=== PATIENT | male | born 1980 | race Caucasian/White ===

== ENCOUNTER 2025-01-13 11:11 | Emergency (ER) | payer BC, SELFPAY ==
--- OUTSIDE RECORDS SUMMARY | 2024-12-19 10:00 | XMS_ITS | Encounter Summary ---
Author Organization [facility] Address [address] [place] [address] Care Team Providers Care Door Clamp Operator Name Role Phone DrewKimberly CASTINGS TRIMMER Unavailable No Ref-Primary, Physician Primary Care Provider Encounter Details Date Type Department Care Team (Late Contact Info) Description 12/19/2024 10:00 AM CDT Virtual Visit [address] [phone] Deepak Soto, CASTINGS TRIMMER Dysphonia (Primary Dx); Vocal cord bowing Social History Tobacco Use Types Packs/Day Years Used Date Smoking Tobacco: Never Assessed PHQ-2 Answer Date Recorded PHQ-2 Score 1 09/03/2024 Sex and Gender Information Value Date Recorded Sex Assigned at Not on file 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 Gender Identity Not on file Sexual Orientation Not on file documented as of this encounter Plan of Treatment Upcoming Encounters Date Type Department Care Team ([facility] Contact Info) Description 01/23/2025 11:00 AM CDT Virtual Visit [address] [phone] Deepak Soto, DEBBIE 02/04/2025 11:30 AM CDT Office Visit [address] [phone] Deepak Soto, CASTINGS TRIMMER documented as of this encounter Visit Diagnoses Diagnosis Dysphonia- Primary Vocal cord bowing Other diseases of vocal cords documented in this encounter Care Teams Door Clamp Operator Relationship Specialty Start Date End Date No Ref-Primary, Physician PCP - General 07/15/24 Kimbelry Russell, DEBBIE [address] [place] [id number] Speech Language Pathologist Speech Language/Path 10/09/23 documented as of this encounter
--- OUTSIDE RECORDS SUMMARY | 2024-12-26 15:00 | XMS_ITS | Encounter Summary ---
Author Organization [facility] Address [address] [place] [address] Care Team Providers Care Engineering Design Supervisor Name Role Phone DrewKimberly TRUCK MANAGER Unavailable No Ref-Primary, Physician Primary Care Provider Encounter Details Date Type Department Care Team (Late Contact Info) Description 12/26/2024 3:00 PM CDT Office Visit [address] [phone] Deepak Soto, TRUCK MANAGER Dysphonia (Primary Dx); Vocal cord bowing Social History Tobacco Use Types Packs/Day Years Used Date Smoking Tobacco: Never Assessed PHQ-2 Answer Date Recorded PHQ-2 Score 1 09/03/2024 Sex and Gender Information Value Date Recorded Sex Assigned at Not on file 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 Gender Identity Not on file Sexual Orientation Not on file documented as of this encounter Plan of Treatment Upcoming Encounters Date Type Department Care Team ([facility] Contact Info) Description 01/23/2025 11:00 AM CDT Virtual Visit [address] [phone] Deepak Soto, DEBBIE 02/04/2025 11:30 AM CDT Office Visit [address] [phone] Deepak Soto, TRUCK MANAGER documented as of this encounter Visit Diagnoses Diagnosis Dysphonia- Primary Vocal cord bowing Other diseases of vocal cords documented in this encounter Care Teams Engineering Design Supervisor Relationship Specialty Start Date End Date No Ref-Primary, Physician PCP - General 07/15/24 Kimberly Russell, DEBBIE [address] [place] [id number] Speech Language Pathologist Speech Language/Path 10/09/23 documented as of this encounter
--- OUTSIDE RECORDS SUMMARY | 2025-01-09 16:00 | XMS_ITS | Encounter Summary ---
Author Organization [facility] Address [address] [place] [address] Care Team Providers Care Coat Hanger Shaper Machine Operator Name Role Phone DrewKimberly COTTON BALER Unavailable No Ref-Primary, Physician Primary Care Provider Encounter Details Date Type Department Care Team (Late Contact Info) Description 01/09/2025 4:00 PM CDT Virtual Visit [address] [phone] Deepak Soto, COTTON BALER Dysphonia (Primary Dx); Vocal cord bowing Social History Tobacco Use Types Packs/Day Years Used Date Smoking Tobacco: Never Assessed PHQ-2 Answer Date Recorded PHQ-2 Score 1 09/03/2024 Sex and Gender Information Value Date Recorded Sex Assigned at Not on file 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 Gender Identity Not on file Sexual Orientation Not on file documented as of this encounter Plan of Treatment Upcoming Encounters Date Type Department Care Team ([facility] Contact Info) Description 01/23/2025 11:00 AM CDT Virtual Visit [address] [phone] Deepak Soto, DEBBIE 02/04/2025 11:30 AM CDT Office Visit [address] [phone] Deepak Soto, COTTON BALER documented as of this encounter Visit Diagnoses Diagnosis Dysphonia- Primary Vocal cord bowing Other diseases of vocal cords documented in this encounter Care Teams Coat Hanger Shaper Machine Operator Relationship Specialty Start Date End Date No Ref-Primary, Physician PCP - General 07/15/24 Kimberly Russell, DEBBIE [address] [place] [address] Speech Language Pathologist Speech Language/Path 10/09/23 documented as of this encounter
--- OUTSIDE RECORDS SUMMARY | 2025-01-13 11:13 | XMS_ITS | Clinical Summary ---
Author Organization [facility] Address [facility] [place] [address] Care Team Providers Care Bioprocessing Manufacturing Technician Name Role Phone [facility] Primary Care Provider [phone] Allergies No known active allergies Medications albuterol HFA (PRO-AIR; VENTOLIN; PROVENTIL) 90 mcg/actuation inhaler INHALE 2 PUFFS BY MOUTH EVERY 4 HOURS NEEDED FOR WHEEZING OR SHORTNESS OF BREATH 4 Active benzonatate (TESSALON) 200 mg capsule Take 200 mg by mouth 3 times daily if needed. FOR COUGH 4 Active buPROPion (WELLBUTRIN XL) 300 mg Extended-Releas e tablet Take 300 mg by mouth once daily. 4 Active hydrOXYzine HCL (ATARAX) 25 mg tablet Take by mouth at bedtime. 4 Active ipratropium (ATROVENT NASAL) 21 mcg (0.03 %) nasal spray USE 2 SPRAYS IN EACH NOSTRIL TWICE DAILY 4 Active Social History Tobacco Use Types Packs/Day Years Used Date Smoking Tobacco: Never Passive Smoke Exposure: Never Smokeless Tobacco: Never Tobacco Cessation:Counseling Given: Not Answered Sex and Gender Information Value Date Recorded Sex Assigned at Not on file Legal Sex Male 3:10 PM CDT Gender Identity Not on file Sexual Orientation Not on file Obstetrics History Last Filed Vital Signs Vital Sign Reading Time Taken Comments Blood Pressure 128/72 05/04/2024 3:35 PM CDT Pulse 97 05/04/2024 3:35 PM CDT Temperature 36.7 C (98 F) 05/04/2024 3:35 PM CDT Respiratory Rate 18 05/04/2024 3:35 PM CDT Oxygen Saturation 96% 05/04/2024 3:35 PM CDT Inhaled Oxygen Concentration - - Weight 72.1 kg (159 lb) 05/04/2024 3:35 PM CDT Height - - Body Mass Index - - Plan of Treatment Health Maintenance Due Date Last Done Comments Tdap 1993 Depression screening for age 12+ 1994 HIV for age 15-65 1997 BMI (ht and wt on same day) for age 18+ 2000 Hepatitis C screening for age 18-79 2000 Hepatitis B series for 19+ (1 of 3 - 19+ 3-dose series) 2001 Tetanus booster 2002 Lipids for age 35-44 2017 COVID-19 vaccine series (2023- season) 2024 05/21/2023, 07/16/2022, 07/13/2021, Additional history exists Influenza Vaccine (Season Ended) 2025 Pneumococcal series for age 6-49 Aged Out No longer eligible based on patient's age to complete this [place] [address] [place] [address] Care Teams Bioprocessing Manufacturing Technician Relationship Specialty Start Date End Date [facility] [address] [place] [address] PCP - General 05/04/24
--- OUTSIDE RECORDS SUMMARY | 2025-01-13 11:13 | XMS_ITS | Clinical Summary ---
Author Organization [facility] Address [address] [place] [address] Care Team Providers Care Peoplesoft Financials Consultant Name Role Phone DrewKimberly SYSTEMS SOFTWARE SPECIALIST Unavailable No Ref-Primary, Physician Primary Care Provider Encounters Date Type Department Care Team Description 01/09/2025 4:00 PM CDT Virtual Visit [address] [phone] Deepak Soto SYSTEMS SOFTWARE SPECIALIST Dysphonia (Primary Dx); Vocal cord bowing 12/26/2024 3:00 PM CDT Office Visit [address] [phone] Deepak Soto, SYSTEMS SOFTWARE SPECIALIST Dysphonia (Primary Dx); Vocal cord bowing 12/26/2024 Travel 12/19/2024 10:00 AM CDT Virtual Visit [address] [phone] Deepak Soto, SYSTEMS SOFTWARE SPECIALIST Dysphonia (Primary Dx); Vocal cord bowing 11/27/2024 4:00 PM CDT Office Visit [address] [phone] Deepak Soto, SYSTEMS SOFTWARE SPECIALIST Dysphonia (Primary Dx); Vocal cord bowing 11/27/2024 Travel 11/26/2024 3:00 PM CDT Virtual Visit [facility] [address] [phone] Deepak Soto SLP Dysphonia (Primary Dx); Vocal cord bowing 10/29/2024 3:00 PM CDT Virtual Visit [address] [phone] Deepak Soto SLP Dysphonia (Primary Dx); Vocal cord bowing from Last 3 Months Social History Tobacco Use Types Packs/Day Years Used Date Smoking Tobacco: Never Assessed PHQ-2 Answer Date Recorded PHQ-2 Score 1 09/03/2024 Sex and Gender Information Value Date Recorded Sex Assigned at Not on file 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 Gender Identity Not on file Sexual Orientation Not on file Plan of Treatment Upcoming Encounters Date Type Department Care Team (Late st Contact Info) Description 01/23/2025 11:00 AM CDT Virtual Visit [address] [phone] Deepak Soto SLP 02/04/2025 11:30 AM CDT Office Visit [address] [phone] Deepak Soto SLP Health Maintenance Due Date Last Done Comments ADVANCE CARE PLANNING 1982 ANNUAL REVIEW OF HM ORDERS 1982 DIABETES SCREENING 1982 YEARLY PREVENTIVE VISIT 1985 HIV SCREENING 1997 HEPATITIS C SCREENING 2000 HEPATITIS B VACCINE (1 of 3 - 19+ 3-dose series) 2001 LIPID 2022 ZOSTER VACCINE (1 of 2) 2032 DTAP/TDAP/TD VACCINE (2 - Td or Tdap) 03/03/2033 03/03/2023 COVID-19 VACCINE Completed 05/13/2024, 04/2023, 07/16/2022, Additional history exists INFLUENZA VACCINE Completed 05/13/2024, , 07/16/2022, Additional history exists PHQ-2 (once per calendar year) Completed 09/03/2024 HPV VACCINE Aged Out No longer eligi ble based on patient's age to complete this topic MENINGITIS VACCINE Aged Out No longer eligible based on patient's age to complete this topic PNEUMOCOCCAL VACCINE: PEDIATRICS (0 to 5 YEARS) AND AT-RISK PATIENTS (6 to 49 YEARS) Aged Out No longer eligible based on patient's age to complete this topic Procedures Procedure Name Priority Date/Time Associated Diagnosis Comments OR SPEECH/HEARING THERAPY, INDIVIDUAL Routine 12/25/2024 10:16 PM CDT Dysphonia Vocal cord bowing OR SPEECH/HEARING THERAPY, INDIVIDUAL Routine 12/04/2024 9:52 AM CDT Dysphonia Vocal cord bowing OR SPEECH/HEARING THERAPY, INDIVIDUAL Routine 11/02/2024 2:25 PM CDT Dysphonia Vocal cord bowing from Last 3 Months Insurance [facility] Care Teams Pe[employer] Financ[employer] Consultant Relationship Specialty Start Date End Date No Ref-Primary, Physician PCP - General 07/15/24 Kimberly Russell SLP [address] [place] [address] Speech Language Pathologist Speech Language/Path 10/09/23
--- OUTSIDE RECORDS SUMMARY | 2025-01-13 11:13 | XMS_ITS | Encounter Summary ---
Author Organization [facility] Address [address] [place] [address] Care Team Providers Care Counter Hand Name Role Phone Kimberly Russell STOREROOM CLERK Unavailable No Ref-Primary, Physician Primary Care Provider Encounter Details Date Type Department Care Team (Late Contact Info) Description 07/15/2024 MyC Medical Advice [address] [phone] Kimberly Russell, STOREROOM CLERK [address] [place] [phone] Social History Tobacco Use Types Packs/Day Years Used Date Smoking Tobacco: Never Assessed Sex and Gender Information Value Date Recorded Sex Assigned at Not on file 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 Gender Identity Not on file Sexual Orientation Not on file documented as of this encounter Plan of Treatment Upcoming Encounters Date Type Department Care Team ([facility] Contact Info) Description 01/23/2025 11:00 AM CDT Virtual Visit [address] [phone] Deepak Soto, STOREROOM CLERK 02/04/2025 11:30 AM CDT Office Visit [address] [phone] Deepak Soto, STOREROOM CLERK documented as of this encounter Visit Diagnoses Not on filedocumented in this encounter Care Teams Counter Hand Relationship Specialty Start Date End Date No Ref-Primary, Physician PCP - General 07/15/24 Kimberly Russell, DEBBIE [address] [place] [address] Speech Language Pathologist Speech Language/Path 10/09/23 documented as of this encounter
--- OUTSIDE RECORDS SUMMARY | 2025-01-13 11:13 | XMS_ITS | Encounter Summary ---
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 Gender Identity Not on file Sexual Orientation Not on file documented as of this encounter Plan of Treatment Upcoming Encounters Date Type Department Care Team (Late st Contact Info) Description 01/23/2025 11:00 AM CDT Virtual Visit [address] [phone] Deepak Soto SLP 02/04/2025 11:30 AM CDT Office Visit [address] [phone] Deepak Soto SLP documented as of this encounter Visit Diagnoses Not on filedocumented in this encounter Care Teams Insole Taper Relationship Specialty Start Date End Date No Ref-Primary, Physician PCP - General 07/15/24 Kimberly Russell SLP [address] [place] [phone] Speech Language Pathologist Speech Language/Path 10/09/23 documented as of this encounter
[2025-01-13 11:15] VITALS: BP 133/82; PULSE 72; RESP 16; TEMP 36.1; O2SAT 98; BMI 20.7
--- NOTE | 2025-01-13 11:26 | ED_ITS ---
HPI - General Adult General Chief complaint: Flank Pain Stated complaint: L side pain Time Seen by Provider: 01/13/25 11:26 History of Present Illness HPI narrative: L back and flank pain since sunday. thought it might be constipation ate prunes, had bm. pain got better. pain suddenly returned at 0800 this am and had to leave work by 0820. denies urinary problems. has had n/v 44-year-old man presenting to the emergency department with complaint of left flank pain. Began about 3 hours prior to presentation the Emergency Department. And has grown. Primarily feeling it in the back area not so much in his abdomen. Can not seem to find comfort. No dysuria or hematuria. Family history of stones. Particular health problems. No fever. Trauma. Had an inkling of this discomfort 2 days ago. Thought maybe might be related to constipation following a bowel movement seem to temporarily get better. Now is return. Did vomit before arrival in the emergency department. Related Data Home Medications ?Medication ?Instructions ?Recorded ?Confirmed bupropion HCl 100 mg tablet,12 hr mg PO BID 02/21/22 1 sustained-release Descovy 01/13/25 Previous Rx's ?Medication ?Instructions ?Recorded oxycodone-acetaminophen 5 mg-325 1 - 2 tab PO TID PRN pain #10 tabs 01/13/25 mg tablet (Endocet) tamsulosin 0.4 mg capsule (Flomax) 0.4 mg PO DAILY #14 caps 01/13/25 Allergies Allergy/AdvReac Type Severity Reaction Status Date / Time No Known Allergies Allergy Verified 01/13/25 12:21 Review of Systems Status of ROS: Reports: 6 or more systems reviewed and unremarkable except as noted in History and below [facility] Medical History Dark urine ?R82.998 - Other abnormal findings in urine (ICD-10) Family History Mother Melanoma Social History Narrative: 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 Habits: Never smoker. Smoking Status: Never smoker Exam Narrative: Exam Narrative: Pleasant. Appears uncomfortable. Breathing easily. Curled up a little bit lying on his left side in the bed. Vague reproduction of discomfort to percussion the left flank. Abdomen is flat soft nontender. Heart in regular rate and rhythm. Lungs are clear. Const: Vital Signs, click to edit/add: Vital Signs - 24 hr 01/13/25 11:15 01/13/25 13:00 Temperature 96.9 F L Pulse Rate [Pulse Oximeter] 72 89 Respiratory Rate 16 16 Blood Pressure [Ri ght Upper Arm] 133/82 114/69 Pulse Oximetry 98 98 Oxygen Delivery Me thod Room Air Room Air Documenting provider has reviewed patient's vital signs: yes Course Vital Signs Vital signs: Initial Vital Signs Temperature 96.9 F L 01/13/25 11:15 Temperature Source Temporal Artery Scan 01/13/25 11:15 Pulse Rate 72 01/13/25 11:15 Respiratory Rate 16 01/13/25 11:15 Blood Pressure 133/82 01/13/25 11:15 Blood Pressure Mean 99 01/13/25 11:15 Blood Pressure Position Sitting 01/13/25 11:15 Pulse Oximetry 98 01/13/25 11:15 Oxygen Delivery Method Room Air 01/13/25 11:15 Vital Signs Temperature 96.9 F L 01/13/25 11:15 Pulse Rate 72 01/13/25 11:15 Respiratory Rate 16 01/13/25 11:15 Blood Pressure 133/82 01/13/25 11:15 Pulse Oximetry 98 01/13/25 11:15 Oxygen Delivery Method Room Air 01/13/25 11:15 Temperature 96.9 F L 01/13/25 11:15 Pulse Rate 89 01/13/25 13:00 Respiratory Rate 16 01/13/25 13:00 Blood Pressure 114/69 01/13/25 13:00 Pulse Oximetry 98 01/13/25 13:00 Oxygen Delivery Method Room Air 01/13/25 13:00 Medications Administered Medications: Discontinued Medications Generic Name Dose Route Start Last Admin Trade Name Freq PRN Reason Stop Dose Admin Sodium Chloride 1,000 mls @ 1,000 mls/hr 01/13/25 11:37 01/13/25 12:56 0.9 % Sodium Chloride 1000 Ml IV 01/13/25 12:36 Infused .Q1H ONE Infusion Ketorolac Tromethamine 30 mg 01/13/25 11:37 01/13/25 11:57 Ketorolac 30 Mg/Ml Inj IVP 01/13/25 11:38 30 mg ONCE ONE Administration Medical Decision Making MDM Narrative Medical decision making narrative: I think given intensity of his discomfort I would proceed with CT imaging. Would have primary concern of ureteral colic and possible related stone. Suppose could be vascular disruption does not have risk factors for this. Does not seem positional to suggest spinal issue. Discussed options for pain management. He would prefer to start with ketorolac. Labs are generally reassuring just with a very mildly elevated white count which I would think is related to stress response. CT imaging the abdomen pelvis with IV contrast independently reviewed by me shows [id number] hydronephrosis on the left side and an approximately 2 mm stone at the left ureteral vesicular junction. Looks to be also a large stone lower pole of left kidney. I do suspect the former is the source of Mr. Cruz pain. On reassessment is markedly improved. Given a dose of Flomax after stone confirmation. Radiology over-read below Indication: LEFT FLANK PAIN Technique: CT abdomen/pelvis with IV contrast utilizing 69 mL Isovue 370 Comparison: None Findings: Lower thorax: Unremarkable Abdomen/pelvis: The liver, gallbladder and biliary system, spleen, pancreas, and adrenal glands are unremarkable. The kidneys are normal in size. No suspicious enhancing renal masses or lesions. There are few subcentimeter hypoattenuating lesions in the kidneys bilaterally, too small to characterize, but likely small benign cysts. There is an obstructing 2 millimeter stone at the left ureterovesicular junction causing mild to moderate left-sided hydroureteronephrosis. Additional nonobstructing 7 millimeter stone seen at the lower pole of the left kidney. Mild prostatomegaly. No evidence of bowel obstruction or inflammation. The appendix is normal. No free air, free fluid, or abscess. No abdominopelvic lymphadenopathy. The vasculature is unremarkable. Soft tissue/musculoskeletal: Tiny fat containing umbilical hernia. The bones are unremarkable. Impression: 1. Obstructing 2 millimeter stone at the left ureterovesicular junction causing mild to moderate left-sided hydroureteronephrosis. 2. Additional incidental findings as detailed above. Please note that all CT scans at this facility use dose modulation, iterative reconstruction, and/or weight-based dosing when appropriate to reduce radiation dose to as low as reasonably achievable. Dictated by Deepak Soto MD @ 01/13/2025 12:51:37 PM See patient discharge plan for further discussion Would consider straining your urine over this next week. Stone analysis may be helpful. It may just disintegrate in your bladder as well. Generally stay well-hydrated. Be seen for pain improved in 4-5 days, fever, uncontrolled pain. Sending in prescriptions for Percocet (Endocet) and Flomax to your pharmacy. Continue taking the Flomax until you suspect stone has passed. Can take 600 mg of ibuprofen to every 6 hours in could be combined with 1000 mg of acetaminophen as well. Keep in mind that each tablet of Percocet contains 325 mg of acetaminophen Medical Records Medical records reviewed: Yes I reviewed the patient's medical records Lab Data Lab results reviewed: Yes I reviewed the patient's lab results Labs: Lab Results 01/13/25 Range/Units 12:04 WBC 11.82 H (4.50-11.00) K/uL RBC 4.48 (4.30-5.90) m/uL Hgb 14.1 (13.5-17.5) gm/dL Hct 40.7 (37.0-53.0) % MCV 91 (80-100) fL MCH 32 (26-34) pg MCHC 35 (32-36) gm/dL RDW Coeff of Manjeet 13.0 (11.5-15.5) % Plt Count 234 (140-440) K/uL Neut % (Auto) 82.7 H (42.0-72.0) % Lymph % (Auto) 10.8 L (20-44) % [place] % (Auto) 5.0 (0.0-11.0) % Eos % (Auto) 0.0 (0.0-7.0) % Baso % (Auto) 0.1 (0.0-3.0) % Neut # (Auto) 9.80 H (1.7-7.0) K/uL Lymph # (Auto) 1.30 (0.90-2.90) K/uL [place] # (Auto) 0.60 (0.00-0.90) K/UL Eos # (Auto) 0.00 (0.00-0.50) K/uL Baso # (Auto) 0.00 (0.00-0.30) K/uL Abs Immat Gran (auto) 0.20 (0.00-0.30) K/uL Imm/Tot Granulo (auto) 1.4 % Sodium 140 (135-149) mmol/L Potassium 4.2 (3.6-5.1) mmol/L Chloride 104 (96-114) mmol/L Carbon Dioxide 30 (20-32) mmol/L Anion Gap 6 L (7-15) mEq/L BUN 13 (5-24) mg/dL Creatinine 1.1 (0.5-1.5) mg/dL Estimated Creat Clear 78.58 Estimated GFR 86 ml/min Glucose 113 (60-115) mg/dL Calcium 9.2 (8.4-10.6) mg/dL Discharge Plan Discharge Clinical Impression: Ureteral colic, Calculus, ureteral, Nephrolithiasis Patient Disposition: Home, Self-Care Condition: Improved Additional Instructions: Would consider straining your urine over this next week. Stone analysis may be helpful. It may just disintegrate in your bladder as well. Generally stay well-hydrated. Be seen for pain improved in 4-5 days, fever, uncontrolled pain. Sending in prescriptions for Percocet (Endocet) and Flomax to your pharmacy. Continue taking the Flomax until you suspect stone has passed. Can take 600 mg of ibuprofen to every 6 hours in could be combined with 1000 mg of acetaminophen as well. Keep in mind that each tablet of Percocet contains 325 mg of acetaminophen Prescriptions: New oxycodone-acetaminophen [Endocet] 5-325 mg tablet 1 - 2 tab PO TID PRN (Reason: pain) Qty: 10 0RF tamsulosin [Flomax] 0.4 mg capsule 0.4 mg PO DAILY Qty: 14 0RF No Action bupropion HCl 100 mg tablet sustained-release 12 hr PO BID Descovy Follow Up/Referrals: Santiago Kimball MD [Primary Care Provider, Family Practice] Stand Alone Forms: MyHealth Info Instructions
--- NOTE | 2025-01-13 11:55 | CRLHL7_ITS ---
For Patients: As a result of the Century Cures Act, medical imaging exams and procedure reports are released immediately into your electronic medical record. You may view this report before your referring provider. If you have questions, please contact your health care provider. Indication: LEFT FLANK PAIN Technique: CT abdomen/pelvis with IV contrast utilizing 69 mL Isovue 370 Comparison: None Findings: Lower thorax: Unremarkable Abdomen/pelvis: The liver, gallbladder and biliary system, spleen, pancreas, and adrenal glands are unremarkable. The kidneys are normal in size. No suspicious enhancing renal masses or lesions. There are few subcentimeter hypoattenuating lesions in the kidneys bilaterally, too small to characterize, but likely small benign cysts. There is an obstructing 2 millimeter stone at the left ureterovesicular junction causing mild to moderate left-sided hydroureteronephrosis. Additional nonobstructing 7 millimeter stone seen at the lower pole of the left kidney. Mild prostatomegaly. No evidence of bowel obstruction or inflammation. The appendix is normal. No free air, free fluid, or abscess. No abdominopelvic lymphadenopathy. The vasculature is unremarkable. Soft tissue/musculoskeletal: Tiny fat containing umbilical hernia. The bones are unremarkable. Impression: 1. Obstructing 2 millimeter stone at the left ureterovesicular junction causing mild to moderate left-sided hydroureteronephrosis. 2. Additional incidental findings as detailed above. Please note that all CT scans at this facility use dose modulation, iterative reconstruction, and/or weight-based dosing when appropriate to reduce radiation dose to as low as reasonably achievable. Dictated by Deepak Soto MD @ 01/13/2025 12:51:37 PM (Electronically Signed)
[2025-01-13] MEDS: KETOROLAC 30 MG/ML inj IVP (11:57)
[2025-01-13] MEDS: 0.9 % SODIUM CHLORIDE 1000 ml 1,000 ML IV (11:57)
[2025-01-13 12:07] LABS: Basophils Percent Auto 0.1 % (0.0-3.0); Hematocrit 40.7 % (37.0-53.0); Hemoglobin* 14.1 gm/dL (13.5-17.5); Immature Granulocytes Pct Auto 1.4 %; Lymphocytes Percent Auto 10.8 % (20-44); Mean Corpuscular HGB Conc 35 gm/dL (32-36); Mean Corpuscular Hemoglobin 32 pg (26-34); Mean Corpuscular Volume 91 fL (80-100); Neutrophils Percent Auto 82.7 % (42.0-72.0); Platelet Count* 234 K/uL (140-440); Red Blood Count 4.48 m/uL (4.30-5.90); White Blood Count* 11.82 K/uL (4.50-11.00)
[2025-01-13 12:08] LABS: Slide Review Reflex No
[2025-01-13 12:19] LABS: Chloride* 104 mmol/L (96-114); Potassium* 4.2 mmol/L (3.6-5.1); Sodium* 140 mmol/L (135-149)
[2025-01-13 12:22] LABS: Anion Gap 6 mEq/L (7-15); Blood Urea Nitrogen* 13 mg/dL (5-24); Carbon Dioxide* 30 mmol/L (20-32); Creatinine* 1.1 mg/dL (0.5-1.5); Est. Creatinine Clearance* 78.58; Estimated Glomerular Filt Rate 86 ml/min
[2025-01-13 12:23] LABS: Calcium* 9.2 mg/dL (8.4-10.6); Glucose* 113 mg/dL (60-115)
[2025-01-13 13:00] VITALS: BP 114/69; PULSE 89; RESP 16; O2SAT 98
[2025-01-13] MEDS: TAMSULOSIN HCL 0.4 MG CAPSULE PO (13:33)
[2025-01-13 13:54] LABS: Appearance Urine Cloudy (Clear); Bilirubin Urine Negative (Negative); Blood Urine Trace-intact (Negative); Color Urine Light yellow (Yellow); Glucose Urine Negative (Negative); Ketones Urine Negative (Negative); Leukocyte Esterase Urine Negative (Negative); Nitrite Urine Negative (Negative); Protein Urine Negative (Negative); Specific Gravity Urine 1.015 (1.000-1.030); Urobilinogen Urine 0.2 (0.2-1.0); pH Urine 8.5 (5.0-8.5)
[2025-01-13 14:06] LABS: Amorphous Sediment Urine Many; WBC Urine 0-2 (0-5)
== END 2025-01-13 13:35 | disposition home or self-care (01) ==
PROVIDERS: Emergency Provider Family Medicine; PCP Family Medicine
DX: N20.0 Calculus of kidney (principal); N21.1 Calculus in urethra; N23 Unspecified renal colic
CPT/HCPCS: 36415; 74177; 80048; 81001; 85025; 96374; 99284; 99285; A9270; J1885; J7030; Q9967